=== PATIENT | female | born 1940 | race Two or more races ===

== ENCOUNTER 2019-11-24 09:37 | Inpatient (IN) | payer MEDICARE, MEDICAID ==
[~2019-11-24] VITALS: Ht 162.6 cm; Wt 89.4 kg
[2019-11-24 11:06] LABS: BASOPHILS % 1.2 % (0.0-2.0); EOSINOPHILS % 0.8 % (0.0-5.0); HEMATOCRIT. 39.2 % (36.0-48.0); HEMOGLOBIN. 12.8 g/dL (12.0-16.0); LYMPHOCYTES % 20.6 % (20.0-50.0); MEAN CORPUSCULAR HEMOGLOBIN 26.7 pg (28.0-32.0); MEAN CORPUSCULAR VOLUME 81.8 fL (81.0-99.0); MEAN PLATELET VOLUME 7.1 fl (7.4-10.4); MONOCYTES % 7.3 % (2.0-8.0); NEUTROPHILS % 70.1 % (40.0-76.0); PLATELET 536 x1000/uL (130-400); RED BLOOD CELL COUNT 4.79 mill/uL (4.2-5.4); RED CELL DISTRIBUTION WIDTH 15.1 % (11.6-14.6)
[2019-11-24 11:12] LABS: CHLORIDE 108 mEq/L (98-107)
[2019-11-24 11:23] LABS: INR 1.2; PROTHROMBIN TIME 12.1 sec (9.6-11.0)
[2019-11-24] MEDS ORDERED: POTASSIUM CHLORIDE 20MEQ TABLET SR PO NR (11:36)
[2019-11-24] MEDS ORDERED: SODIUM CHLORIDE 0.9% 1,000 ML IV ONE (13:49)
[2019-11-24] MEDS ORDERED: METRONIDAZOLE 500 MG PREMIX 100 ML IV ONE (14:00)
[2019-11-24] MEDS ORDERED: PIPERACILLIN/TAZ 3.375G PREMIX 50 ML IV ONE (14:00)
[2019-11-24 14:32] LABS: CLARITY URINE CLOUDY (CLEAR); COLOR URINE YELLOW (YELLOW); KETONES URINE TRACE (NEGATIVE); LEUKOCYTE ESTERASE URINE NEGATIVE (NEGATIVE); NITRITE URINE NEGATIVE (NEGATIVE); OCCULT BLOOD URINE NEGATIVE (NEGATIVE); PROTEIN URINE NEGATIVE (NEGATIVE)
[2019-11-24] MEDS ORDERED: HYDROMORPHONE HCL/PF 2MG/ML CPJ IV PRN (14:45)
[2019-11-24] MEDS ORDERED: HYDROMORPHONE HCL 2MG TABLET PO PRN (14:45)
[2019-11-24] MEDS ORDERED: ONDANSETRON HCL 4MG/2ML INJ IV PRN ×2 (14:45→23:45)
[2019-11-24] MEDS ORDERED: ACETAMINOPHEN 325MG TABLET PO PRN (14:45)
[2019-11-24] MEDS ORDERED: KCL 10MEQ/50ML PREMIX 50 ML IV SCH (15:30)
[2019-11-24] MEDS: PANTOPRAZOLE SODIUM 40 MG/VIAL IV SCH (15:33)
[2019-11-24] MEDS: KCL 10MEQ/50ML PREMIX 50 ML IV SCH ×3 (16:15→19:00)
[2019-11-24] MEDS ORDERED: PIPERACILLIN/TAZOBACTAM 3.375 G in DEXTROSE 5% WATER 50 ML IV SCH (18:00)
[2019-11-24] MEDS ORDERED: IOHEXOL-300 100 ML BOTTLE ONE (19:08)
[2019-11-24] MEDS ORDERED: HEPARIN 5000 UNITS/ML VIAL SUBCUT SCH (21:00)
[2019-11-24 22:10] VITALS: BP 143/79
[2019-11-24] MEDS ORDERED: LOSA1TAB34 MT (22:54)
[2019-11-24] MEDS ORDERED: DEXT 5%/0.45% NACL 1000ML 1,000 ML IV SCH (23:41)
[2019-11-24] MEDS ORDERED: PIPERACILLIN/TAZ 3.375G PREMIX 50 ML IV SCH (23:45)
[2019-11-24] MEDS ORDERED: ENOXAPARIN 40MG/0.4ML SYR SUBCUT SCH (23:45)
[2019-11-24] MEDS ORDERED: IPRATROPIUM/ALBUTEROL 0.5-3(2.5)MG/3ML NEB HHN PRN (23:45)
[2019-11-25] VITALS: BP 119/58
[2019-11-25] MEDS: DEXT 5%/0.45% NACL 1000ML 1,000 ML IV SCH ×3 (00:21→17:05)
[2019-11-25] MEDS: PIPERACILLIN/TAZOBACTAM 2.25 G in DEXTROSE 5% WATER 50 ML IV SCH ×4 (00:22→17:05)
[2019-11-25] MEDS: HEPARIN 5000 UNITS/ML VIAL SUBCUT SCH ×3 (00:23→20:22)
[2019-11-25 04:00] VITALS: BP 120/60
[2019-11-25 07:53] LABS: BASOPHILS % 1.1 % (0.0-2.0); EOSINOPHILS % 1.3 % (0.0-5.0); HEMATOCRIT. 34.8 % (36.0-48.0); HEMOGLOBIN. 11.5 g/dL (12.0-16.0); LYMPHOCYTES % 15.4 % (20.0-50.0); MEAN CORPUSCULAR HEMOGLOBIN 26.6 pg (28.0-32.0); MEAN PLATELET VOLUME 7.5 fl (7.4-10.4); MONOCYTES % 7.8 % (2.0-8.0); NEUTROPHILS % 74.4 % (40.0-76.0); PLATELET 534 x1000/uL (130-400); RED CELL DISTRIBUTION WIDTH 14.9 % (11.6-14.6)
[2019-11-25 07:59] LABS: CHLORIDE 107 mEq/L (98-107)
[2019-11-25 08:00] VITALS: BP 120/57
[2019-11-25] MEDS: LOSARTAN POTASSIUM 25 MG TABLET PO SCH (08:33)
[2019-11-25] MEDS: PANTOPRAZOLE SODIUM 40 MG/VIAL IV SCH (08:34)
[2019-11-25 12:00] VITALS: BP 115/51
[2019-11-25 16:00] VITALS: BP 100/54
[2019-11-25 20:00] VITALS: BP 117/54
[2019-11-25] MEDS ORDERED: PIPERACILLIN/TAZOBACTAM 2.25 G in DEXTROSE 5% WATER 50 ML IV SCH (20:00)
[2019-11-25] MEDS: ATORVASTATIN CALCIUM 20MG TABLET PO SCH (20:21)
[2019-11-26] VITALS: BP 104/55
[2019-11-26] MEDS: PIPERACILLIN/TAZOBACTAM 2.25 G in DEXTROSE 5% WATER 50 ML IV SCH ×4 (01:03→18:04)
[2019-11-26 04:00] VITALS: BP 123/60
[2019-11-26] MEDS: DEXT 5%/0.45% NACL 1000ML 1,000 ML IV SCH ×2 (05:39→20:41)
[2019-11-26 06:20] LABS: CHLORIDE 108 mEq/L (98-107)
[2019-11-26 06:49] LABS: BASOPHILS % 0.7 % (0.0-2.0); EOSINOPHILS % 2.1 % (0.0-5.0); HEMATOCRIT. 35.6 % (36.0-48.0); HEMOGLOBIN. 11.7 g/dL (12.0-16.0); LYMPHOCYTES % 20.1 % (20.0-50.0); MEAN CORPUSCULAR HEMOGLOBIN 26.6 pg (28.0-32.0); MEAN CORPUSCULAR VOLUME 81.5 fL (81.0-99.0); MEAN PLATELET VOLUME 7.5 fl (7.4-10.4); MONOCYTES % 7.8 % (2.0-8.0); NEUTROPHILS % 69.3 % (40.0-76.0); PLATELET 558 x1000/uL (130-400); RED BLOOD CELL COUNT 4.37 mill/uL (4.2-5.4); RED CELL DISTRIBUTION WIDTH 14.7 % (11.6-14.6)
[2019-11-26 08:00] VITALS: BP 113/56
[2019-11-26] MEDS: PANTOPRAZOLE SODIUM 40 MG/VIAL IV SCH (08:41)
[2019-11-26] MEDS: HEPARIN 5000 UNITS/ML VIAL SUBCUT SCH ×2 (08:42→20:42)
[2019-11-26] MEDS: LOSARTAN POTASSIUM 25 MG TABLET PO SCH (08:42)
[2019-11-26] MEDS: ASPIRIN 81MG TABLET PO SCH (09:10)
[2019-11-26] MEDS ORDERED: POTASSIUM CHLORIDE 20MEQ TABLET SR PO NR (11:00)
[2019-11-26 16:00] VITALS: BP 126/74
[2019-11-26] MEDS: PHENYLEPHRINE/SHK LV/MO/PET,WH RECTAL OINT 57GM PR SCH (18:04)
[2019-11-26 20:00] VITALS: BP_SYST 116; BP_SYST 169; BP_DIAS 43; BP_DIAS 90
[2019-11-26] MEDS: ATORVASTATIN CALCIUM 20MG TABLET PO SCH (20:41)
[2019-11-27] VITALS: BP 106/64
[2019-11-27] MEDS: PHENYLEPHRINE/SHK LV/MO/PET,WH RECTAL OINT 57GM PR SCH ×3 (00:20→11:33)
[2019-11-27] MEDS: PIPERACILLIN/TAZOBACTAM 2.25 G in DEXTROSE 5% WATER 50 ML IV SCH ×3 (00:20→11:33)
[2019-11-27 04:00] VITALS: BP 128/74
[2019-11-27 06:12] LABS: BASOPHILS % 0.9 % (0.0-2.0); EOSINOPHILS % 2.5 % (0.0-5.0); HEMATOCRIT. 36.5 % (36.0-48.0); HEMOGLOBIN. 11.6 g/dL (12.0-16.0); LYMPHOCYTES % 24.1 % (20.0-50.0); MEAN CORPUSCULAR HEMOGLOBIN 26.1 pg (28.0-32.0); MEAN CORPUSCULAR VOLUME 82.1 fL (81.0-99.0); MEAN PLATELET VOLUME 7.3 fl (7.4-10.4); MONOCYTES % 7.9 % (2.0-8.0); NEUTROPHILS % 64.6 % (40.0-76.0); PLATELET 561 x1000/uL (130-400); RED BLOOD CELL COUNT 4.44 mill/uL (4.2-5.4); RED CELL DISTRIBUTION WIDTH 15.1 % (11.6-14.6)
[2019-11-27 06:32] LABS: CHLORIDE 111 mEq/L (98-107)
[2019-11-27 08:00] VITALS: BP 115/56
[2019-11-27] MEDS: ASPIRIN 81MG TABLET PO SCH (08:27)
[2019-11-27] MEDS: PANTOPRAZOLE SODIUM 40 MG/VIAL IV SCH (08:27)
[2019-11-27] MEDS: HEPARIN 5000 UNITS/ML VIAL SUBCUT SCH (08:27)
[2019-11-27] MEDS ORDERED: POTASSIUM CHLORIDE 20MEQ TABLET SR PO SCH (08:30)
[2019-11-27] MEDS: LOSARTAN POTASSIUM 25 MG TABLET PO SCH (09:54)
[2019-11-27] MEDS: DEXT 5%/0.45% NACL 1000ML 1,000 ML IV SCH (09:56)
[2019-11-27] MEDS ORDERED: IOHEXOL-300 100 ML BOTTLE ONE (10:55)
[2019-11-27 11:47] VITALS: BP 127/73
[2019-11-27] MEDS ORDERED: LEVO750T21 MT (14:36)
[2019-11-27] MEDS ORDERED: PHEN51CR TP (14:36)
[2019-11-27] MEDS ORDERED: FAMO-135 PO (14:36)
[2019-11-27] MEDS ORDERED: METR500T PO (14:36)
[2019-11-27 15:50] VITALS: BP 103/51
[2019-11-27 16:00] VITALS: BP 103/51
[2019-11-28] MEDS ORDERED: FAMOTIDINE 20MG/2ML VIAL IV SCH (09:00)
== END 2019-11-27 17:30 | disposition home or self-care (01) | DRG 871 ==
LOC: ER 09:37 → 8WST 14:09 → ENRESERV 20:29
PROVIDERS: ADMIT Internal Medicine; ATTEND Internal Medicine
DX: A41.9 Sepsis, unspecified organism (principal); I50.33 Acute on chronic diastolic (congestive) heart failure; K57.20 Diverticulitis of large intestine with perforation and abscess without bleeding; E78.5 Hyperlipidemia, unspecified; D50.9 Iron deficiency anemia, unspecified; E66.9 Obesity, unspecified; E86.0 Dehydration; E87.6 Hypokalemia; I11.0 Hypertensive heart disease with heart failure; F17.200 Nicotine dependence, unspecified, uncomplicated; K64.9 Unspecified hemorrhoids; Z90.710 Acquired absence of both cervix and uterus; Z68.33 Body mass index [BMI] 33.0-33.9, adult
CPT/HCPCS: 36415; 74177; 80053; 80061; 81003; 82728; 83540; 83550; 83605; 83735; 83880; 85025; 93005; 93306; 96365; 99291; C9113; J1644; J2543; J3480; J3490; J7030; J7060; Q9967